=== PATIENT | female | born 1980 | race Caucasian/White ===

== ENCOUNTER 2024-03-02 06:26 | Day surgery (SDC) | payer MEDICAID ==
[2024-02-26 13:07] LABS: EOSINOPHILS # (AUTO) 0.1 X10'3 (0-0.9); NEUTROPHILS # (AUTO) 4.4 X10'3 (1.8-7.7); PRE OP WHITE BLOOD COUNT 8.2 10'3 (4.8-10.8)
[2024-02-26 13:09] LABS: BASOPHILS % (AUTO) 0.6 % (0-1); EOSINOPHILS % (AUTO) 1.4 % (0-6); LYMPHOCYTES # (AUTO) 3.1 X10'3 (1.1-4.8); LYMPHOCYTES % (AUTO) 37.2 % (21-51); MEAN CORPUSCULAR HEMOGLOBIN 34.4 PG (27.0-31.0); MEAN CORPUSCULAR HGB CONC 34.3 g/dL (33.0-36.5); MEAN CORPUSCULAR VOLUME 100.1 FL (78-98); MEAN PLATELET VOLUME 8.2 FL (7.4-10.4); MONOCYTES # (AUTO) 0.6 X10'3 (0-0.9); MONOCYTES % (AUTO) 7.8 % (2-12); PRE OP HEMATOCRIT 41.7 % (35.0-45.0); PRE OP HEMOGLOBIN 14.3 g/dL (12.0-16.0); PRE OP PLATELET COUNT 352 X10'3 (140-440); RED BLOOD COUNT 4.17 X10'6 (4.20-5.60); RED CELL DISTRIBUTION WIDTH 13.1 % (11.5-14.5)
[2024-02-26 13:24] LABS: ALBUMIN 3.8 G/DL (3.4-5.0); ALKALINE PHOSPHATASE 90 IU/L (46-116); BLOOD UREA NITROGEN 8 MG/DL (7-18); CALCIUM 9.6 MG/DL (8.5-10.1); CHLORIDE 104 MMOL/L (99-107); CREATININE 0.57 MG/DL (0.40-0.90); PRE OP ALT 24 U/L (30-65); PRE OP ANION GAP 8 (8-16); PRE OP BILIRUB, TOTAL 0.3 MG/DL (0.0-1.0); PRE OP SODIUM 140 MMOL/L (135-145); TOTAL CARBON DIOXIDE 27.7 MMOL/L (24-32); TOTAL PROTEIN 7.7 G/DL (6.4-8.2); eGFR > 90 ML/MIN
[2024-02-26 13:41] LABS: PRE OP AST 27 U/L (10-37); PRE OP POTASSIUM 4.3 MMOL/L (3.4-5.1)
[2024-02-26 13:46] LABS: PRE OP GLUCOSE 54 MG/DL (70-104)
[~2024-03-02] VITALS: Ht 170.2 cm; Wt 65.2 kg
[2024-03-02] MEDS: ceFAZolin 2gm in dextrose, iso 50 ML IV ONE (05:30)
[~2024-03-02 06:26] MED LIST: AMYL1CAP57 PO; GABA300C PO; INSULIN PUMP SQ; LEVO137T2 PO
[2024-03-02 08:15] VITALS: BP 128/82; PULSE 68; RESP 16; TEMP 98; O2SAT 97; O2SAT 98
[2024-03-02] MEDS ORDERED: fentaNYL/PF 50MCG/1 ML 2ML syringe ONE (08:38)
[2024-03-02] MEDS ORDERED: midazolam 1 mg/ML 2ml injection ONE (08:38)
[2024-03-02] MEDS: famotidine 20mg tablet PO ONE (08:47)
[2024-03-02] MEDS: ringers solution, lacted 1,000 ML IV SCH (08:48)
[2024-03-02] MEDS ORDERED: LIDOcaine 2% (20mg/ml) 5ml vial ONE (08:53)
[2024-03-02] MEDS ORDERED: BUPIVAcaine/PF 2.5mg/ml (0.25%) 10ml vial ONE (08:53)
[2024-03-02] MEDS ORDERED: triamcinolone acetonide 40mg/ml inj ONE (09:28)
[2024-03-02 09:43] VITALS: BP 121/88; PULSE 78; RESP 16
[2024-03-02 09:50] VITALS: BP 117/73; PULSE 74; RESP 15; O2SAT 98
[2024-03-02 10:00] VITALS: BP 123/78; PULSE 72; RESP 16; O2SAT 99
[2024-03-02 10:10] VITALS: BP 120/80; PULSE 74; RESP 14; O2SAT 99
== END 2024-03-02 10:13 | disposition home or self-care (01) ==
LOC: PAS 06:26
PROVIDERS: ATTEND Orthopaedic Surgery Hand Surgery
DX: G56.02 Carpal tunnel syndrome, left upper limb (principal); M18.12 Unilateral primary osteoarthritis of first carpometacarpal joint, left hand; E11.9 Type 2 diabetes mellitus without complications; E03.9 Hypothyroidism, unspecified; I25.2 Old myocardial infarction; Z79.4 Long term (current) use of insulin; Z79.890 Hormone replacement therapy; Z79.891 Long term (current) use of opiate analgesic; Z79.899 Other long term (current) drug therapy; Z90.49 Acquired absence of other specified parts of digestive tract; Z98.890 Other specified postprocedural states
CPT/HCPCS: 20600; 29848; 36415; 80053; 82948; 85025; J0690; J2003; J2250; J3010; J3301; J3490; J7030; J7120; Z7506; Z7512; A4215; A6449; A7000